=== PATIENT | female | born 1995 | race Caucasian/White ===

== ENCOUNTER 2021-01-03 09:15 | Emergency (ER) | payer OTHER ==
[~2021-01-03 09:15] MED LIST: BENADRYL 25MG C25 MG PO; IBUPROFEN600 MG PO; KEFLEX CAP 500500 MG PO; KEPPRA750 MG PO; PEPCID20 MG PO; PREDNISONE50 MG PO
== END 2021-01-03 10:42 | disposition home or self-care (01) ==
LOC: ER1 09:15
DX: U07.1 COVID-19 (principal); F17.200 Nicotine dependence, unspecified, uncomplicated; Z88.0 Allergy status to penicillin; Z90.49 Acquired absence of other specified parts of digestive tract
CPT/HCPCS: 99283; U0003

== ENCOUNTER 2021-01-06 20:04 | Emergency (ER) | payer OTHER ==
[2021-01-06 21:42] LABS: HEMOGLOBIN 11.5 gm/dl (12.3-15.3); RED BLOOD COUNT 4.67 M/UL (4.00-5.10); WHITE BLOOD COUNT 6.1 K/UL (4.5-11.0)
[2021-01-06 22:00] LABS: BUN/CREATININE RATIO 12 (0-10)
[2021-01-06] MEDS ORDERED: DECADRON6 MG PO (22:51)
[2021-01-06] MEDS ORDERED: LODINE CAP 300300 MG PO (22:51)
[2021-01-06] MEDS ORDERED: VENTOLIN HFA 66.7 GM INH (22:51)
== END 2021-01-07 01:41 | disposition home or self-care (01) ==
LOC: ER1 20:04
PROVIDERS: Physician Assistant Medical
DX: Z23 Encounter for immunization (principal); U07.1 COVID-19; Z90.49 Acquired absence of other specified parts of digestive tract; Z88.0 Allergy status to penicillin; Z79.899 Other long term (current) drug therapy
CPT/HCPCS: 71045; 80053; 85025; 99284; M0243

== ENCOUNTER 2021-02-14 03:02 | Emergency (ER) | payer OTHER ==
[~2021-02-14 03:02] MED LIST changes: +DECADRON6 MG PO; +LODINE CAP 300300 MG PO; +VENTOLIN HFA 66.7 GM INH
== END 2021-02-14 05:00 | disposition left against medical advice (07) ==
LOC: ER1 03:02
DX: Z53.21 Procedure and treatment not carried out due to patient leaving prior to being seen by health care provider (principal)
CPT/HCPCS: 93005

== ENCOUNTER → 2021-03-11 | Outpatient (CLI) | payer OTHER | LOC: NM 03-10 15:00 → ECHO 13:15 → NM 14:30 | DX: R07.9 Chest pain, unspecified (principal); U09.9 Post COVID-19 condition, unspecified; I51.7 Cardiomegaly; R94.39 Abnormal result of other cardiovascular function study | CPT/HCPCS: ECHO; 93306 ==

== ENCOUNTER 2021-10-07 18:34 | Emergency (ER) | payer OTHER | END 2021-10-07 21:42 | disposition left against medical advice (07) | LOC: ER1 18:34 | DX: Z53.21 Procedure and treatment not carried out due to patient leaving prior to being seen by health care provider (principal) ==